=== PATIENT | female | born 1945 | race Caucasian/White ===

== ENCOUNTER 2022-04-12 12:33 | Emergency (ER) | payer MEDICARE, OTHER ==
[~2022-04-12 12:33] MED LIST: ADVAIR 100-501 EACH INH; CERTAGEN1 EACH PO; FAMOTIDINE20 MG PO; SPIRIVA 18MCG18 MCG INH; SYNTHROID25 MCG PO; VITAMIN D5000 UNIT PO
[2022-04-12 15:17] LABS: BASOPHIL 0.3 % (0-2); EOSINOPHIL 0.7 % (0-7); HCT 40.2 % (37.0-47.0); HGB 12.8 g/dl (12.5-16.0); LYMPHOCYTE 5.1 % (15-48); MCH 27.4 pg (25.0-31.0); MCHC 31.8 g/dL (32.0-36.0); MCV 85.9 fL (78.0-100.0); MONOCYTE 4.8 % (0-12); MPV 9.8 fL (6.0-9.5); NEUTROPHIL 88.4 % (41-80); NRBC 0; PLT 225 K/uL (150-400); RBC 4.68 M/uL (4.20-5.40); RDW 14.8 % (11.5-14.0)
[2022-04-12 15:38] LABS: ALBUMIN 3.4 g/dL (3.4-5.0); BILIRUBIN - TOTAL 0.6 mg/dL (0.2-1.0); BUN/CREAT RATIO (CALC) 17.1 RATIO; CREATININE 0.7 mg/dL (0.51-0.95); GLOBULIN (CALCULATION) 4.4 g/dL; POTASSIUM 3.9 mmol/L (3.5-5.1); TOTAL PROTEIN 7.8 g/dL (6.4-8.2)
[2022-04-12] MEDS ORDERED: PERCOCET 10-321 EACH PO (18:26)
== END 2022-04-12 18:43 | disposition home or self-care (01) ==
LOC: FER 12:33
PROVIDERS: Nurse Practitioner Family
DX: R91.8 Other nonspecific abnormal finding of lung field (principal); C41.3 Malignant neoplasm of ribs, sternum and clavicle
CPT/HCPCS: 36415; 36600; 71275; 80053; 82803; 85025; 85379; 93971; 96372; J1170; J7030; Q9967